=== PATIENT | female | born 1940 | race Caucasian/White ===

== ENCOUNTER 2016-05-14 17:15 | Inpatient (IN) | payer MEDICARE, OTHER ==
[~2016-05-14] VITALS: Ht 157.5 cm; Wt 40.2 kg
[2016-05-14] VITALS (142 sets, daily range): BP systolic 119; BP diastolic 47; PULSE 97; TEMP 97; O2SAT 75–100
[~2016-05-14 17:15] MED LIST: ADVAIR DISKUS1 DS1 IH; ALBUTEROL0.09 MG/A4 IH; ASPIRIN 32325 MG/TAB PO; ATACAND HCT 321 TA1 PO; BYSTOLIC10 MG PO; CATAPRES-TTS 10.1 M1 TD; CATAPRES0.3 MG PO; COUMADIN 2MG2 MG/TAB PO; DALIRESP500 MCG PO; FLONASE NASAL S16 GM NS; LIPITOR 40MG TA40 MG PO; NEXIUM40 MG PO; NITRO TRANS0.4 MG/HR TD; PERCOCET 325 MG1 TA3 PO; PLAVIX 75MG TAB75 MG PO; PLENDIL10 MG PO; SINGULAIR10 MG PO; SPIRIVA18 MCG IH; THEO-DUR 200200 MG PO; ULTRAM 50MG TAB50 MG PO
[2016-05-14] MEDS ORDERED: ATACAND HCT 321 TA1 PO (18:43)
[2016-05-14] MEDS ORDERED: LASIX 20MG TABL20 MG PO (18:44)
[2016-05-14 21:31] LABS: ADJUSTED CALCIUM 9.4 mg/dL (8.4-10.2); ALANINE AMINOTRANSFERASE 58 U/L (9-52); ALKALINE PHOSPHATASE 195 U/L (50-136); ANION GAP 11 mmol/L (7-16); BILIRUBIN,TOTAL 1.1 mg/dL (0.0-1.0); CALCIUM 7.8 mg/dL (8.4-10.2); CARBON DIOXIDE 17 mmol/L (22-30); CHLORIDE 109 mmol/L (98-107); CREATINE KINASE 1184 U/L (30-135); GLUCOSE 71 mg/dL (74-106); POTASSIUM 5.7 mmol/L (3.4-5.0); SODIUM 137 mmol/L (137-145); TOTAL PROTEIN 5.1 gm/dL (6.4-8.2)
[2016-05-14 21:47] LABS: BLOOD UREA NITROGEN 98 mg/dL (7-17); CREATININE, serum 3.96 mg/dL (0.52-1.25)
[2016-05-14 21:48] LABS: TROPONIN-I 0.322 ng/mL (0.000-0.034)
[2016-05-14 22:35] LABS: SALICYLATE < 1.0 mg/dL
[2016-05-14 23:25] LABS: VENOUS BLOOD GAS BE -9.6 (-4-4); VENOUS BLOOD GAS SAO2 33.4 % (60-80); VENOUS BLOOD GAS SITE CENTRAL LINE
[2016-05-15] VITALS (127 sets, daily range): BP systolic 94–125; BP diastolic 75–99; PULSE 98–113; TEMP 97.1–97.6; O2SAT 74–100
[2016-05-15 00:22] LABS: ARTERIAL BLD GAS O2 SATURATION 94.9 % (92-100); ARTERIAL BLD GAS TCO2 CT 15.1; ARTERIAL BLOOD GAS HCO3 14.2 meq/L (22-26); ARTERIAL BLOOD GAS PO2 92.3 mmHg (80-100); ATS? YES
[2016-05-15 00:23] LABS: ALLEN TEST NO
[2016-05-15 01:10] LABS: TROPONIN-I 0.566 ng/mL (0.000-0.034)
== END 2016-05-15 03:00 | disposition short-term general hospital (02) | DRG 871 ==
LOC: ICU 17:15
PROVIDERS: Family Medicine; Nurse Practitioner Family
PROC: 02HV33Z Insertion of Infusion Device into Superior Vena Cava, Percutaneous Approach (ICD-10-PCS; principal; 2016-05-14)
DX: A41.9 Sepsis, unspecified organism (principal); E43 Unspecified severe protein-calorie malnutrition; N17.9 Acute kidney failure, unspecified; N39.0 Urinary tract infection, site not specified; Z68.1 Body mass index [BMI] 19.9 or less, adult; R65.20 Severe sepsis without septic shock; I77.1 Stricture of artery; I10 Essential (primary) hypertension; K21.9 Gastro-esophageal reflux disease without esophagitis; J44.9 Chronic obstructive pulmonary disease, unspecified; G25.81 Restless legs syndrome; E86.0 Dehydration; E87.5 Hyperkalemia; F17.210 Nicotine dependence, cigarettes, uncomplicated; Z79.01 Long term (current) use of anticoagulants; Z86.73 Personal history of transient ischemic attack (TIA), and cerebral infarction without residual deficits
CPT/HCPCS: 99223-AI; J1630; J1644; J1815; J2060; J2250; J2270; J7030; J7042